=== PATIENT | female | born 1955 | race Caucasian/White ===

== ENCOUNTER 2021-04-11 08:45 | Emergency (ER) | payer OTHER ==
[2021-04-11 09:26] VITALS: BP 100/63; PULSE 79; TEMP 97.8; BMI 23.8
[2021-04-11 11:14] LABS: PH,URINE 6.5 (5.0-8.0); URINE APPEARANCE CLEAR; URINE BILIRUBIN NEGATIVE (NEGATIVE); URINE COLOR YELLOW; URINE GLUCOSE (UA) NEGATIVE (NEGATIVE); URINE KETONE NEGATIVE (NEGATIVE); URINE LEUK ESTERASE NEGATIVE (NEGATIVE); URINE NITRITE NEGATIVE (NEGATIVE); URINE PROTEIN NEGATIVE (NEGATIVE); URINE UROBILINOGEN 0.2 mg/dL (0.2-1.0)
[2021-04-11] MEDS ORDERED: IBUPROFEN 600 MG TABLET (FP) PO ONE ×2 (11:36→11:57)
== END 2021-04-11 13:26 | disposition home or self-care (01) ==
LOC: JER 08:45
DX: N77.1 Vaginitis, vulvitis and vulvovaginitis in diseases classified elsewhere (principal)
CPT/HCPCS: 81003; 87070; 87077; 87086; 87186; 87205; 99283-25